=== PATIENT | female | born 1960 ===

== ENCOUNTER 2017-07-31 23:31 | Emergency (ER) | payer OTHER ==
[2017-08-01 00:31] VITALS: BP 163/78
[2017-08-01] MEDS ORDERED: MOTRIN PO ONE (00:48)
--- NOTE | 2017-08-01 01:57 | XRay Report ---
FINAL REPORT EXAM: XR ELBOW 2V RT HISTORY: Rt elbow pain post fall COMPARISON: None available. FINDINGS: Two views of the right elbow obtained. No joint effusion. No acute fracture dislocation. IMPRESSION: No acute bony abnormality.
== END 2017-08-01 06:00 | disposition left against medical advice (07) ==
LOC: ED 23:31
DX: M25.521 Pain in right elbow (principal); Z53.21 Procedure and treatment not carried out due to patient leaving prior to being seen by health care provider